=== PATIENT | female | born 1970 ===

== ENCOUNTER 2020-11-08 15:42 | Emergency (ER) | payer SELFPAY ==
--- NOTE | 2020-11-08 18:02 | CR ---
Indication: Cellulitis of 1st left toe Technique: Two views left foot Comparison: None Findings: Bones: Alignment is normal. No fractures or bone lesions. No bony erosions. Small inferior and posterior calcaneal enthesophytes. Joint spaces: Unremarkable. Soft tissues: Unremarkable. Impression: No bony erosions or soft tissue gas. Dictated by Belgica Lozoya MD @ 11/08/2020 6:01:[address] Belgica Lozoya @ Nov 08 2020 6:01PM
--- NOTE | 2020-11-08 18:04 | CR ---
Indication: Pain. Technique: AP view of the pelvis and 2 standing views of the right hip. Comparison: None Findings: Both femoral heads are seated within the acetabula. Degenerative changes of both hips are identified, moderate. No fracture or subluxation is identified. Impression: Moderate degenerative change of both hips. Dictated by Nata Mixon MD @ 11/08/2020 6:02:[address] Nata Mixon @ Nov 08 2020 6:02PM
[2020-11-08] MEDS ORDERED: cefTRIAXone 1 GM Vial IM ONE (18:25)
[2020-11-08] MEDS ORDERED: Bupivacaine 0.5% 10 ML SDV INJECT ONE (18:26)
[2020-11-08 18:57] LABS: BLOOD UREA NITROGEN,BUN 12 mg/dL (7.0-18.0); CARBON DIOXIDE,CO2 29.8 mmol/L (21.0-32.0); CHLORIDE,CL 98 mmol/L (98-107); GLUCOSE RANDOM 283 mg/dL (74-106); POTASSIUM,K 4.4 mmol/L (3.5-5.1); SODIUM,NA 134 mmol/L (136-145)
[2020-11-08] MEDS ORDERED: cefTRIAXone 1 GM in Lidocaine 1% 4 ML IM ONE (19:14)
--- NOTE | 2020-11-08 19:40 | EDM.PDOC ---
ED HPI GENERAL MEDICAL PROBLEM - General Chief Complaint: Lower Extremity Injury/Pain Stated Complaint: LEFT FOOT SEVERLY SWOLLEN/PRE-DIABETIC Time Seen by Provider: 11/08/20 15:44 Source of Information: Reports: Patient History Limitations: Reports: No Limitations - History of Present Illness INITIAL COMMENTS - FREE TEXT/NARRATIVE: HISTORY AND PHYSICAL: History of present illness: Patient is a 50-year-old female, with a history of type 2 diabetes on Metformin, who presents emergency room today with concern of left big toe infection that has been ongoing for the past 2 to 3 days as well as right hip pain. Patient states that she started noticing the infection a few days ago and thought that it would improve but it has not. Patient states that she has not taken anything for her symptoms. Patient states that she also has been having right hip pain for the past couple weeks and states that it is worse if she stands on her feet for 30 or more minutes and states that it feels like "bone rubbing on bone ". Patient denies any trauma or injury to the hip. Patient denies any trauma or injury to the foot. Patient denies fever, chills, chest pain, shortness of breath, or cough. Denies headache, neck stiff ness, change in vision, syncope, or near syncope. Denies nausea, vomiting, abdominal pain, diarrhea, constipation, or dysuria. Has not noted any blood in urine or stool. Patient has been eating and drinking appropriately. Review of systems: As per history of present illness and below otherwise all systems reviewed and negative. Past medical history: As per history of present illness and as reviewed below otherwise noncontributory. Surgical history: As per history of present illness and as reviewed below otherwise noncontributory. Social history: See social history for further information Family history: As per history of present illness and as reviewed below otherwise noncontributory. Physical exam: General: Patient is alert, oriented, and in no acute distress. Patient sitting comfortably on exam table. Vitals stable and reviewed by me. HEENT: Atraumatic, normocephalic, pupils equal and reactive bilaterally, negative for conjunctival pallor or scleral icterus, mucous membranes moist, TMs normal bilaterally, throat clear, neck supple, nontender, trachea midline. No drooling or trismus noted. No meningeal signs. No hot potato voice noted. Lungs: Clear to auscultation, breath sounds equal bilaterally, chest nontender. Heart: S1S2, regular rate and rhythm without overt murmur Abdomen: Soft, nondistended, nontender. Negative for masses or hepatosplenomegaly. Negative for costovertebral tenderness. Pelvis: Stable nontender. Genitourinary: Deferred. Rectal: Deferred. Skin: Intact, warm, dry. No lesions or rashes noted. Extremities: There is a felon noted of the left foot first digit with a small superficial ulcer noted to the pad of the digit. The area of felon tends to be most prominent over the pad of the digit. Confirmed at bedside by Dr. Nina who agrees to incision for I &D. There is mild surrounding cellulitis of the digit of the left foot. Patient does have intact sensation to light and deep touch of the complete left lower extremity and full range of motion of all digits of the left lower extremity without difficulty. Dorsalis pedis and posterior tibial pulses are grossly intact to left lower extremity with capillary refill less than 2 seconds. Patient does have full range of motion of the complete right lower extremity without pain or difficulty. Otherwise, atraumatic, negative for cords or calf pain. Neurovascular unremarkable. Neuro: Awake, alert, oriented. Cranial nerves II through XII unremarkable. Cerebellum unremarkable. Motor and sensory unremarkable throughout. Exam nonfocal. Notes: Dr. Nina directly involved in patient care and at bedside of patient agreeable to felon treatment with incision and drainage. See procedure note below. At this time, the podiatry clinic is closed to ensure follow-up tomorrow for reevaluation. Discussed with patient to call the podiatry clinic in the morning and if they are unable to see her tomorrow for reevaluation, to return to the emergency room for reevaluation given her history of diabetes. Strict return precautions thoroughly discussed with patient. Discussed importance for follow-up with a primary care provider. Voices understanding and is agreeable to plan of care. Denies any further questions or concerns at this time. Diagnostics: CBC, CMP, left foot x-ray, right hip x-ray Therapeutics: Digital block, incision and drainage of felon Prescription: Keflex, Bactrim DS Impression: Felon, left foot, first digit Cellulitis, left foot, first digit Right hip pain, unspecified Plan: 1. Take medication as prescribed. You can alternate ibuprofen and Tylenol as directed for pain and discomfort. 2. Call Dr. Alejo, podiatry clinic, in the morning to establish an appointment time to be seen tomorrow. If they are unable to see you at their clinic tomorrow, return to the ED for reevaluation as discussed. 3. Return to the ED as needed and as discussed. Also follow-up with your primary care provider as discussed. Definitive disposition and diagnosis as appropriate pending reevaluation and review of above. Treatments ULTRASONIC TESTER: Reports: Acetaminophen left great toe and right hip Pain Score (Numeric/FACES): 6 - Related Data Allergies Allergy/AdvReac Type Severity Reaction Status Date / Time No Known Allergies Allergy Verified 11/08/20 16:55 Home Meds: Home Meds Magnesium 11/08/20 [History] Sulfamethoxazole/Trimethoprim [Bactrim Ds Tablet] 1 each PO BID 10 Days #20 tablet 11/08/20 [Rx] cephALEXin [Keflex] 500 mg PO Q8H 10 Days #30 cap 11/08/20 [Rx] glipiZIDE [Glipizide ER] 11/08/20 [History] metFORMIN [Glucophage XR] 11/08/20 [History] Past Medical History HEENT History: Reports: None Cardiovascular History: Reports: [facility] Respiratory History: Reports: None Gastrointestinal History: Reports: None Genitourinary History: Reports: None RN RADIOLOGY History: Reports: Musculoskeletal History: Reports: None Neurological History: Reports: None Psychiatric History: Reports: None Endocrine/Metabolic History: Reports: Diabetes, Type II Hematologic History: Reports: None Immunologic History: Reports: None Oncologic (Cancer) History: Reports: None Dermatologic History: Reports: None - Infectious Disease History Infectious Disease History: Reports: None - Past Surgical History Head Surgeries/Procedures: Reports: None Social & Family History - Family History Family Medical History: No Pertinent Family History - Tobacco Use Tobacco Use Status *Q: Never Tobacco User Second Hand Smoke Exposure: No - Caffeine Use Caffeine Use: Reports: None - Recreational Drug Use Recreational Drug Use: No Review of Systems - Review of Systems Review Of Systems: Comprehensive ROS is negative, except as noted in HPI. ED EXAM, GENERAL - Physical Exam Exam: See Below (see dictation) ED TRAUMA EXTREMITY PROCEDURES - I&D Site: Left foot, first digit Skin Prep: Chlorhexidine (Hibiciens) Local Anesthesia: Lidocaine: 1% Plain Local Anesthesia - Bupivicaine (Marcaine): 0.5% Plain Local Anesthetic Volume: Other (6) Area Incised With: 11 Blade Drainage: Purulent, Bloody, Small Amount Probed to Break Up Loculations: Yes Packed With: None Sterile Dressing: Other (sterile bulky dressing placed by nursing staff) Complications: No Progress/Comments: There was a 5mm incision made along the lateral aspect of the nail of the left foot first digit. A rather small amount of pus was able to be drained despite trying to break up loculations. Discussed with patient that the more prominent area of infection was at the pad of the digit and agreeable to a small superficial incision made along the midline pad of the digit with a larger amount of pus drained, this incision was made 2mm and approximately 2-3mm deep purposely to avoid neurovascular structures. This incision was made very superficially as not to disrupt neurovascular structures with result of a larger amount of pus drained. Post I&D neurovascular intact. Course - Vital Signs Last Recorded V/S: Last Vital Signs Temp 97.8 F 11/08/20 16:51 Pulse 81 11/08/20 16:51 Resp 18 11/08/20 16:51 BP 122/58 L 11/08/20 16:51 Pulse Ox 98 11/08/20 16:51 - Orders/Labs/Meds Labs: Laboratory Tests 11/08/20 11/08/20 Range/Units 18:15 18:15 WBC 9.11 (4.0-11.0) K/uL RBC 4.80 (4.30-5.90) M/uL Hgb 14.7 (12.0-16.0) g/dL Hct 41.2 (36.0-46.0) % MCV 85.8 (80.0-98.0) fL MCH 30.6 (27.0-32.0) pg MCHC 35.7 (31.0-37.0) g/dL RDW Std Deviation 39.2 (28.0-62.0) fl RDW Coeff of Gabriela 13 (11.0-15.0) % Plt Count 222 (150-400) K/uL MPV 10.20 (7.40-12.00) fL Neut % (Auto) 56.2 (48.0-80.0) % Lymph % (Auto) 25.8 (16.0-40.0) % Milam % (Auto) 7.8 (0.0-15.0) % Eos % (Auto) 10.0 H (0.0-7.0) % Baso % (Auto) 0.2 (0.0-1.5) % Neut # (Auto) 5.1 (1.4-5.7) K/uL Lymph # (Auto) 2.4 (0.6-2.4) K/uL Milam # (Auto) 0.7 (0.0-0.8) K/uL Eos # (Auto) 0.9 H (0.0-0.7) K/uL Baso # (Auto) 0.0 (0.0-0.1) K/uL Nucleated RBC % 0.0 /100WBC Nucleated RBCs # 0 K/uL Sodium 134 L (136-145) mmol/L Potassium 4.4 (3.5-5.1) mmol/L Chloride 98 (98-107) mmol/L Carbon Dioxide 29.8 (21.0-32.0) mmol/L BUN 12 (7.0-18.0) mg/dL Creatinine 0.6 (0.6-1.0) mg/dL Est Cr Clr Drug Dosing 102.68 mL/min Estimated GFR (MDRD) > 60.0 ml/min Glucose 283 H (74-106) mg/dL Calcium 8.9 (8.5-10.1) mg/dL Total Bilirubin 0.4 (0.2-1.0) mg/dL AST 27 (15-37) IU/L ALT 41 (14-63) IU/L Alkaline Phosphatase 113 (46-116) U/L Total Protein 7.0 (6.4-8.2) g/dL Albumin 3.5 (3.4-5.0) g/dL Globulin 3.5 (2.6-4.0) g/dL Albumin/Globulin Ratio 1.0 (0.9-1.6) Meds: Medications Discontinued Medications Generic Name Dose Route Start Last Admin Trade Name Freq PRN Reason Stop Dose Admin Bupivacaine HCl 10 ml 11/08/20 18:26 Bupivacaine 0.5% 10 Ml Sdv INJECT 11/08/20 18:27 ONETIME ONE Ceftriaxone Sodium 1 gm 11/08/20 18:25 11/08/20 19:28 Ceftriaxone 1 Gm Vial IM 11/08/20 18:26 Not Given ONETIME ONE Ceftriaxone Sodium 1 gm/ 4 mls @ 4 mls/sec 11/08/20 19:14 11/08/20 19:44 Lidocaine HCl IM 11/08/20 19:15 4 mls/sec ONETIME ONE Administration Lidocaine HCl 5 ml 11/08/20 18:26 Lidocaine 1% 5 Ml Sdv INJECT 11/08/20 18:27 ONETIME ONE Departure - Departure Time of Disposition: 19:39 Disposition: Home, Self-Care 01 Clinical Impression: Felon, Hip pain Cellulitis Qualifiers: Site of cellulitis: extremity Site of cellulitis of extremity: lower extremity Laterality: left Qualified Code(s): L03.116 - Cellulitis of left lower limb - Discharge Information Prescriptions: Sulfamethoxazole/Trimethoprim [Bactrim Ds Tablet] 1 each PO BID 10 Days #20 tablet cephALEXin [Keflex] 500 mg PO Q8H 10 Days #30 cap Referrals: PCP,None [Primary Care Provider] - Forms: ED Department Discharge Additional Instructions: The following information is given to patients seen in the emergency department who are being discharged to home. This information is to outline your options for follow-up care. We provide all patients seen in our emergency department with a follow-up referral. The need for follow-up, as well as the timing and circumstances, are variable depending upon the specifics of your emergency department visit. If you don't have a primary care physician on staff, we will provide you with a referral. We always advise you to contact your personal physician following an emergency department visit to inform them of the circumstance of the visit and for follow-up with them and/or the need for any referrals to a consulting specialist. The emergency department will also refer you to a specialist when appropriate. This referral assures that you have the opportunity for follow-up care with a specialist. All of these measure are taken in an effort to provide you with optimal care, which includes your follow-up. Under all circumstances we always encourage you to contact your private physician who remains a resource for coordinating your care. When calling for follow-up care, please make the office aware that this follow-up is from your recent emergency room visit. If for any reason you are refused follow-up, please contact the [facility] Emergency Department at and asked to speak to the emergency department charge nurse. [facility], Dr. Alejo, Podiatry [address] [address] 1. Take medication as prescribed. You can alternate ibuprofen and Tylenol as directed for pain and discomfort. 2. Call Dr. Alejo, podiatry clinic, in the morning to establish an appointment time to be seen tomorrow. If they are unable to see you at their clinic tomorrow, return to the ED for reevaluation as discussed. 3. Return to the ED as needed and as discussed. Also follow-up with your primary care provider as discussed. Sepsis Event Note (ED) - Evaluation Sepsis Screening Result: No Definite Risk - Focused Exam Vital Signs: Vital Signs Temp Pulse Resp BP Pulse Ox 11/08/20 16:51 97.8 F 81 18 122/58 L 98
== END 2020-11-08 20:10 | disposition home or self-care (01) ==
LOC: MW.ED 15:42
DX: L03.032 Cellulitis of left toe (principal); M25.551 Pain in right hip; I25.2 Old myocardial infarction; E11.9 Type 2 diabetes mellitus without complications; Z79.84 Long term (current) use of oral hypoglycemic drugs; Z79.899 Other long term (current) drug therapy
CPT/HCPCS: 10060; 36415; 73502; 73620; 80053; 85025; 96372; 99283; J0696; J3490

== ENCOUNTER 2021-04-01 10:41 | Emergency (ER) | payer SELFPAY ==
[2021-04-01] MEDS ORDERED: Sodium Chloride 0.9% 10 ML Syringe FLUSH PRN (11:04)
[2021-04-01] MEDS ORDERED: Ketorolac 30 MG/ML SDV IVPUSH ONE (11:04)
[2021-04-01] MEDS ORDERED: Sodium Chloride 0.9% 1,000 ML IV ONE (11:04)
[2021-04-01] MEDS ORDERED: Sodium Chloride 0.9% 2.5 ML Syringe FLUSH PRN (11:04)
[2021-04-01] MEDS ORDERED: Ondansetron 4 MG/2 ML SDV IVPUSH ONE (11:04)
--- NOTE | 2021-04-01 11:10 | EDM.PDOC ---
ED HPI GENERAL MEDICAL PROBLEM - General Chief Complaint: Respiratory Problem Stated Complaint: COVID SYMPTOMS Time Seen by Provider: 04/01/21 10:44 Source of Information: Reports: Patient History Limitations: Reports: No Limitations - History of Present Illness INITIAL COMMENTS - FREE TEXT/NARRATIVE: HISTORY AND PHYSICAL: History of present illness: The patient is a 50-year-old female who presents to the emergency department with complaints of dizziness, nausea, headache, body aches, cough, nasal congestion, right upper quad pain for the last 4 days. The patient denies any kind of fever, diarrhea, or vomiting. The patient has not been taking anything [id number] as she states nothing works. The patient is diabetic and has been taking her medications. She does report that her blood sugars have been running on the high side. Patient denies any fever, chills, headache, change in vision, syncope or near syncope. Denies any chest pain, back pain, shortness of breath. Denies any vomiting, diarrhea, constipation or dysuria. Has not noted any blood in urine or stool. Review of systems: As per history of present illness and below otherwise all systems reviewed and negative. Past medical history: As per history of present illness and as reviewed below otherwise noncontributory. Surgical history: As per history of present illness and as reviewed below otherwise noncontributory. Social history: See social history for further information Family history: As per history of present illness and as reviewed below otherwise noncontributory. Physical exam: General: Well developed and well nourished. Alert and orientated x 3. Nontoxic in appearance and in no acute distress. Vital signs are stable and have been reviewed by me. Nursing notes were reviewed. HEENT: Atraumatic, normocephalic, pupils equal and reactive bilaterally, negative for conjunctival pallor or scleral icterus, mucous membranes moist, TMs normal bilaterally, throat clear, neck supple, nontender, trachea midline. No drooling or trismus noted. No meningeal signs. No hot potato voice noted. Lungs: Clear to auscultation bilaterally. No wheezes, rales, or rhonchi. Chest nontender. Normal work of breathing, no accessory muscles used. Heart: S1S2, regular rate and rhythm without overt murmur, gallops, or rubs. No JVD. No peripheral edema Abdomen: Soft, nondistended, generalized tenderness with increased tenderness to the right upper quad. Normoactive bowel sounds. Negative for masses or costovertebral tenderness. Skin: Intact, warm, dry. No lesions or rashes noted. Hematologic: No petechiae or purpra. Mucosa appropriate color and normal nail bed color and refill. Extremities: Atraumatic, moves all extremities per self without difficulty or deficits, negative for cords or calf pain. Neurovascular unremarkable. Neuro: Awake, alert, oriented. Cranial nerves II through XII unremarkable. Cerebellum unremarkable. Motor and sensory unremarkable throughout. Exam nonfo gómez. Psychiatric: Mood and affect are appropriate. Normal thought process. Answering questions appropriately. Notes: *This patient was seen and evaluated during the 2019 SARS-CoV-2 novel coronavirus pandemic period. Community viral transmission is ongoing at time of this encounter and the emergency department is operating under pandemic response procedures. As stated above the patient is a 50-year-old female who presents with dizziness, nausea, headache, body aches, cough, nasal congestion, right upper quad pain for the last 4 days. Patient states that she has not been able to eat drink due to she does state that she has been urinating adequately. I will do a general viral work-up on the patient and treat her nausea with IV fluids and Zofran and her pain with Toradol. The patient is agreeable with this plan. Patient CBC is unremarkable. The patient's chemistry is remarkable for sodium of 135 and a chloride of 96. The patient's glucose is elevated at 274. The patient's influenza A&B are negative. The COVID-19 is positive. The chest x- ray Impression: Hyperinflation and chronic interstitial change with likely developing interstitial and airspace opacities within the lung bases which may represent developing cai virus pneumonia. Correlate with history of clinical testing.The patient was offered monoclonal antibodies and she declined. I educated the patient on the medical antibodies and on her comorbidities and the bodies could help with the disease process. The patient states that she was not comfortable with them and declined. The patient states that her pain has resolved and after the IV fluids, Zofran, and Toradol she feels much better. I will prescribe Zofran 4 mg ODT via instrument for the patient. She is agreeable with this discharge plan. I have talked with the patient about today's findings, in addition to providing specific details for plan of care. Reassessment at the time of disposition demonstrates that the patient is in no acute distress. The patient is stable for discharge, counseling was provided and we discussed in great detail signs and symptoms that would prompt them to return to the Emergency Department. Medication, follow up and supportive care measures were reviewed and discussed. Voices understanding and is agreeable to plan of care. Denies any further questions or concerns at this time. Diagnostics: BC, CMP, lipase, Covid/influenza swab, chest x-ray Therapeutics: Fluids, Zofran, Toradol Prescription: Zofran 4 mg ODT every 6 hours Impression: COVID-19 pneumonia Plan: 1. Your COVID-19 screening is positive. That means you do have the coronavirus and you are considered contagious. Your vital signs and oxygen saturation are well enough that you were able to monitor your symptoms at home. Continue to monitor for trouble breathing, new confusion or inability to arouse, bluish lips or face or any of the other symptoms we discussed -if this occurs please return to the emergency room. 1a. I prescribed Zofran 4 mg ODT via the instrument. You can take this for your nausea. As we discussed you can take Motrin 100 mg to 600 mg every 8 hours for your pain. You were offered the monoclonal antibodies and you refused. You have 10 days from symptom onset to take these and if you change your mind you need to get a hold of your primary care provider. 2. Please self quarantine until cleared by [facility]. Inform any persons that you have been in contact with since you started becoming symptomatic that you have tested positive; they should be made aware and take the appropriate steps as needed. 3. You can take NyQuil during the evening to help get a restful night sleep. May alternate Tylenol and ibuprofen as needed for pain and fever management. 4. The [facility] health department will be calling you and following up with you. The [place] COVID 19 Hotline phone number , They are open Saturday - Saturday 7am - 7pm. Follow up with your primary care provider for re-evaluation and re-testing after the 10 day quarantine and discuss when you should be seen. Definitive disposition and diagnosis as appropriate pending reevaluation and review of above. 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: Musculoskeletal History: Reports: None Neurological History: Reports: None Psychiatric History: Reports: None Endocrine/Metabolic History: Reports: Diabetes, Type II Hematologic History: Reports: None Immunologic History: Reports: None Oncologic (Cancer) History: Reports: None Dermatologic History: Reports: None - Infectious Disease History Infectious Disease History: Reports: None - Past Surgical History Head Surgeries/Procedures: Reports: None Social & Family History - Family History Family Medical History: No Pertinent Family History - Caffeine Use Caffeine Use: Reports: Coffee - Recreational Drug Use Recreational Drug Use: No ED ROS GENERAL - Review of Systems Review Of Systems: Comprehensive ROS is negative, except as noted in HPI. ED EXAM, GENERAL - Physical Exam Exam: See Below (See dictation) Course - Vital Signs Last Recorded V/S: Last Vital Signs Temp 97.8 F 04/01/21 10:52 Pulse 81 04/01/21 12:38 Resp 16 04/01/21 10:52 BP 112/67 04/01/21 12:38 Pulse Ox 98 04/01/21 12:38 - Orders/Labs/Meds Orders: Active Orders 24 hr Category Date Time Status Saline Lock Insert [OM.PC] Stat Oth 04/01/21 11:04 Ordered Labs: Laboratory Tests 04/01/21 04/01/21 04/01/21 Range/Units 10:48 11:15 11:15 WBC 4.72 (4.0-11.0) K/uL RBC 4.77 (4.30-5.90) M/uL Hgb 14.4 (12.0-16.0) g/dL Hct 41.0 (36.0-46.0) % MCV 86.0 (80.0-98.0) fL MCH 30.2 (27.0-32.0) pg MCHC 35.1 (31.0-37.0) g/dL RDW Std Deviation 39.4 (28.0-62.0) fl RDW Coeff of Gabriela 13 (11.0-15.0) % Plt Count 159 (150-400) K/uL MPV 11.40 (7.40-12.00) fL Neut % (Auto) 66.5 (48.0-80.0) % Lymph % (Auto) 22.9 (16.0-40.0) % Kemper % (Auto) 10.4 (0.0-15.0) % Eos % (Auto) 0.2 (0.0-7.0) % Baso % (Auto) 0.0 (0.0-1.5) % Neut # (Auto) 3.1 (1.4-5.7) K/uL Lymph # (Auto) 1.1 (0.6-2.4) K/uL Kemper # (Auto) 0.5 (0.0-0.8) K/uL Eos # (Auto) 0.0 (0.0-0.7) K/uL Baso # (Auto) 0.0 (0.0-0.1) K/uL Nucleated RBC % 0.0 /100WBC Nucleated RBCs # 0 K/uL Sodium 135 L (136-145) mmol/L Potassium 3.8 (3.5-5.1) mmol/L Chloride 96 L (98-107) mmol/L Carbon Dioxide 25.2 (21.0-32.0) mmol/L BUN 9 (7.0-18.0) mg/dL Creatinine 0.7 (0.6-1.0) mg/dL Est Cr Clr Drug Dosing 88.01 mL/min Estimated GFR (MDRD) > 60.0 ml/min Glucose 274 H (74-106) mg/dL Calcium 8.6 (8.5-10.1) mg/dL Total Bilirubin 0.4 (0.2-1.0) mg/dL AST 32 (15-37) IU/L ALT 41 (14-63) IU/L Alkaline Phosphatase 98 (46-116) U/L Total Protein 6.8 (6.4-8.2) g/dL Albumin 2.7 L (3.4-5.0) g/dL Globulin 4.1 H (2.6-4.0) g/dL Albumin/Globulin Ratio 0.7 L (0.9-1.6) Lipase 98 (73-393) U/L Influenza Type A RNA NEGATIVE (NEGATIVE) Influenza Type B RNA NEGATIVE (NEGATIVE) SARS-CoV-2 RNA (CORY) POSITIVE H (NEGATIVE) Meds: Medications Discontinued Medications Generic Name Dose Route Start Last Admin Trade Name Freq PRN Reason Stop Dose Admin Sodium Chloride 1,000 mls @ 999 mls/hr 04/01/21 11:04 04/01/21 11:17 Normal Saline IV 04/01/21 12:04 999 mls/hr .BOLUS ONE Administration Ketorolac Tromethamine 30 mg 04/01/21 11:04 04/01/21 11:17 Ketorolac 30 Mg/Ml Sdv IVPUSH 04/01/21 11:05 30 mg ONETIME ONE Administration Ondansetron HCl 4 mg 04/01/21 11:04 04/01/21 11:17 Ondansetron 4 Mg/2 Ml Sdv IVPUSH 04/01/21 11:05 4 mg ONETIME ONE Administration Sodium Chloride 10 ml 04/01/21 11:04 04/01/21 11:21 Sodium Chloride 0.9% 10 Ml Syringe FLUSH 10 ml ASDIRECTED PRN Administration Keep Vein Open Sodium Chloride 2.5 ml 04/01/21 11:04 04/01/21 11:21 Sodium Chloride 0.9% 2.5 Ml Syringe FLUSH 2.5 ml ASDIRECTED PRN Administration Keep Vein Open Departure - Departure Time of Disposition: 12:24 Disposition: Home, Self-Care 01 Condition: Good Clinical Impression: Pneumonia due to COVID-19 virus - Discharge Information *PRESCRIPTION DRUG MONITORING PROGRAM REVIEWED*: Not Applicable *COPY OF PRESCRIPTION DRUG MONITORING REPORT IN PATIENT ALEXANDRE: Not Applicable Instructions: COVID-19: Quarantine vs. Isolation - [facility] (03/17/2020), COVID-19: What to Do If You Are Sick- [facility] (06/15/2020) Referrals: PCP,None [Primary Care Provider] - Forms: ED Department Discharge Additional Instructions: The following information is given to patients seen in the emergency department who are being discharged to home. This information is to outline your options for follow-up care. We provide all patients seen in our emergency department with a follow-up referral. The need for follow-up, as well as the timing and circumstances, are variable depending upon the specifics of your emergency department visit. If you don't have a primary care physician on staff, we will provide you with a referral. We always advise you to contact your personal physician following an emergency department visit to inform them of the circumstance of the visit and for follow-up with them and/or the need for any referrals to a consulting specialist. The emergency department will also refer you to a specialist when appropriate. This referral assures that you have the opportunity for follow-up care with a specialist. All of these measure are taken in an effort to provide you with optimal care, which includes your follow-up. Under all circumstances we always encourage you to contact your private physician who remains a resource for coordinating your care. When calling for follow-up care, please make the office aware that this follow-up is from your recent emergency room visit. If for any reason you are refused follow-up, please contact the [facility] Emergency Department at and asked to speak to the emergency department charge nurse. [facility] - Primary [facility] [address] [place] [address] [place] [address] The best way to protect yourself and others from COVID-19 is to take one of the three safe and effective vaccines that have been proven to substantially reduce risk of both infection and severe illness. [facility] is currently offering COVID vaccinations for anyone age 18 and older. To schedule an appointment call [phone]. Or to be contacted by our clinics about scheduling your vaccine online, please go to [email or web address] Plan: 1. Your COVID-19 screening is positive. That means you do have the coronavirus and you are considered contagious. Your vital signs and oxygen saturation are well enough that you were able to monitor your symptoms at home. Continue to monitor for trouble breathing, new confusion or inability to arouse, bluish lips or face or any of the other symptoms we discussed -if this occurs please return to the emergency room. 1a. I prescribed Zofran 4 mg ODT via the instrument. You can take this for your nausea. As we discussed you can take Motrin 100 mg to 600 mg every 8 hours for your pain. You were offered the monoclonal antibodies and you refused. You have 10 days from symptom onset to take these and if you change your mind you need to get a hold of your primary care provider. 2. Please self quarantine until cleared by [facility] Department. Inform any persons that you have been in contact with since you started becoming symptomatic that you have tested positive; they should be made aware and take the appropriate steps as needed. 3. You can take NyQuil during the evening to help get a restful night sleep. May alternate Tylenol and ibuprofen as needed for pain and fever management. 4. The [facility] department will be calling you and following up with you. The [employer] Hotline phone number , They are open Saturday - Saturday 7am - 7pm. Follow up with your primary care provider for re-evaluation and re-testing after the 10 day quarantine and discuss when you should be seen. Sepsis Event Note (ED) - Evaluation Sepsis Screening Result: No Definite Risk - Focused Exam Vital Signs: Vital Signs Temp Pulse Resp BP Pulse Ox 04/01/21 12:38 81 112/67 98 04/01/21 10:52 97.8 F 88 16 128/59 L 91 L - My Orders Last 24 Hours: My Active Orders 04/01/21 11:04 Saline Lock Insert [OM.PC] Stat - Assessment/Plan Last 24 Hours: My Active Orders 04/01/21 11:04 Saline Lock Insert [OM.PC] Stat
[2021-04-01 11:34] LABS: CORONAVIRUS COVID-19 NAA POSITIVE (NEGATIVE); INFLUENZA A NAA NEGATIVE (NEGATIVE); INFLUENZA B NAA NEGATIVE (NEGATIVE)
[2021-04-01 11:57] LABS: BLOOD UREA NITROGEN,BUN 9 mg/dL (7.0-18.0); CARBON DIOXIDE,CO2 25.2 mmol/L (21.0-32.0); CHLORIDE,CL 96 mmol/L (98-107); GLUCOSE RANDOM 274 mg/dL (74-106); LIPASE 98 U/L (73-393); POTASSIUM,K 3.8 mmol/L (3.5-5.1); SODIUM,NA 135 mmol/L (136-145)
--- NOTE | 2021-04-01 12:12 | CR ---
Indication: Cough Comparison: None available. Technique: Single AP view chest Findings: There is hyperinflation and chronic interstitial change. There are developing likely airspace and ground-glass opacities within the lung bases. There is no dense consolidation. The cardiomediastinal silhouette is within normal limits. The bony thorax is grossly intact. Impression: Hyperinflation and chronic interstitial change with likely developing interstitial and airspace opacities within the lung bases which may represent developing cai virus pneumonia. Correlate with history of clinical testing. Dictated by Heri Walter MD @ 04/01/2021 12:10:19 PM (Electronically Signed)
== END 2021-04-01 12:38 | disposition home or self-care (01) ==
LOC: MW.ED 10:41
DX: U07.1 COVID-19 (principal); J12.82 Pneumonia due to coronavirus disease 2019; E11.9 Type 2 diabetes mellitus without complications; Z79.84 Long term (current) use of oral hypoglycemic drugs
CPT/HCPCS: 0240U; 36415; 71045; 80053; 83690; 85025; 96374; 96375; 99284; J1885; J2405; J7030

== ENCOUNTER 2024-08-28 22:08 | Emergency (ER) | payer SELFPAY ==
[2024-08-28 22:38] LABS: BASOPHILS ABSOLUTE AUTO 0.04 K/uL (0.00-0.20); BASOPHILS PERCENT AUTO 0.6 % (0.0-1.0); EOSINOPHILS ABSOLUTE AUTO 0.09 K/uL (0.00-0.45); EOSINOPHILS PERCENT AUTO 1.4 % (0.0-6.0); HEMATOCRIT 40.4 % (37.0-47.0); HEMOGLOBIN 14.3 g/dL (12.0-16.0); IMMATURE GRAN ABSOLUTE AUTO 0.01 K/uL (0.00-0.05); IMMATURE GRAN PERCENT AUTO 0.2 % (0.0-0.4); LYMPHOCYTES ABSOLUTE AUTO 0.73 K/uL (1.00-4.80); LYMPHOCYTES PERCENT AUTO 11.4 % (24.0-44.0); MEAN CORPUSCULAR HEMOGLOBIN 30.1 pg (28.0-32.0); MEAN CORPUSCULAR HGB CONC 35.4 g/dL (32.0-36.0); MEAN CORPUSCULAR VOLUME 85.1 fL (83.0-99.0); MEAN PLATELET VOLUME 10.3 fL (9.4-12.3); MONOCYTES ABSOLUTE AUTO 0.64 K/uL (0.00-0.80); NEUTROPHILS ABSOLUTE AUTO 4.91 K/uL (1.80-7.70); NEUTROPHILS PERCENT AUTO 76.4 % (41.0-71.0); PLATELET COUNT,PLT 188 K/uL (150-400); RED BLOOD CELL COUNT 4.75 M/uL (4.10-5.30); WHITE BLOOD CELL COUNT,WBC 6.42 K/uL (3.9-11.3)
[2024-08-28 22:46] LABS: COLOR,URINE YELLOW; GLUCOSE,URINE >=1000 mg/dL (NEGATIVE); KETONES,URINE >=80 mg/dL (NEGATIVE); LEUKOCYTE ESTERASE,URINE NEGATIVE (NEGATIVE); NITRITE,URINE NEGATIVE (NEGATIVE); OCCULT BLOOD,URINE MODERATE (NEGATIVE); PH,URINE 6.5 (5.0-8.0); PROTEIN,URINE >=300 mg/dL (NEGATIVE)
[2024-08-28 22:57] LABS: APPEARANCE,URINE HAZY; BILIRUBIN,URINE SMALL (NEGATIVE)
[2024-08-28 22:58] LABS: AMORPHOUS SEDIMENT,URINE LIGHT (NEGATIVE); BACTERIA,URINE 1+ (NEGATIVE); EPITHELIAL CELLS,URINE FEW (NONE-FEW)
[2024-08-28 23:03] LABS: A/G RATIO 0.6 (0.9-1.6); BILIRUBIN TOTAL 0.4 mg/dL (0.2-1.0); CALCIUM 8.2 mg/dL (8.5-10.1); CARBON DIOXIDE,CO2 30.5 mmol/L (21.0-32.0); CREATININE 0.8 mg/dL (0.6-1.0); EST CRCL DRUG DOSING (CG) 70.66 mL/min; POTASSIUM,K 4.1 mmol/L (3.5-5.1); PROTEIN TOTAL,TP 5.6 g/dL (6.4-8.2)
[2024-08-29] MEDS: Ondansetron 4 MG/2 ML SDV IVPUSH ONE (01:06)
[2024-08-29] MEDS: Iopamidol 755 MG/ML 500 ML Multipack Bottle IVPUSH ONE (01:30)
[2024-08-29] MEDS: Azithromycin 250 MG Tab PO ONE (02:46)
[2024-08-29] MEDS: cefTRIAXone 1 GM in Water For Injection, Sterile 10 ML IVPUSH ONE (02:46)
== END 2024-08-29 03:33 | disposition home or self-care (01) ==
LOC: MW.ED 22:08
DX: J18.9 Pneumonia, unspecified organism (principal); E11.9 Type 2 diabetes mellitus without complications; Z75.3 Unavailability and inaccessibility of health-care facilities; Z79.84 Long term (current) use of oral hypoglycemic drugs; Z79.899 Other long term (current) drug therapy
CPT/HCPCS: 36415; 71045; 74177; 80053; 81001; 83690; 84484; 85025; 93005; 96374; 96375; 99284; A9270; J0696; J2405; Q9967; 93010; 99283